=== PATIENT | female | born 1965 | race Caucasian/White ===

== ENCOUNTER 2017-03-02 17:03 | Emergency (ER) | payer OTHER, MEDICARE ==
[~2017-03-02] VITALS: Ht 160 cm; Wt 167.8 kg
[~2017-03-02 17:03] MED LIST: CRESTOR5 M1 PO; CYMBALTA60 M1 PO; DOXEPIN HCL25 MG PO; METFORMIN HCL500 M4 PO; NAPROXEN500 M2 PO; NEURONTIN300 M1 PO; VENTOLIN HFA18 GM INH; VITAMIN D250000 UNIT PO
--- NOTE | 2017-03-02 17:27 | ED DYSPNEA/ASTHMA COMPLAINT ---
History of Present Illness General Chief Complaint: General Adult Stated Complaint: DIFF BREATHING, ?LUPUS FLARE UP Source: patient Exam Limitations: no limitations Vital Signs & Intake/Output Vital Signs & Intake/Output Vital Signs Date Time Temp Pulse Resp B/P Pulse O2 O2 Flow FiO2 Ox Delivery Rate 03/02 1936 98.0 105 20 133/88 95 Room Air 03/02 1825 Room Air 03/02 1825 110 20 136/88 95 Room Air 03/02 1706 97.3 114 24 165/93 95 Room Air ED Intake and Output 03/03 0000 03/02 1200 Intake Total Output Total Balance Patient 370 lb Weight Allergies Coded Allergies: No Known Allergies (07/16/16) Reconcile Medications Albuterol Sulfate (Ventolin Hfa) 18 GM HFA.AER.AD 2 PUF INH Q4H ASTHMA ( Reported) Budesonide/Formoterol Fumarate (Symbicort 160-4.5 Mcg Inhaler) 160 MCG-4.5 MCG/ ACTUATION HFA.AER.AD 2 PUF INH BID ASTHMA (Reported) Doxepin HCl 25 MG CAPSULE 1 CAP PO QHS SLEEP (Reported) Duloxetine HCl (Cymbalta) 60 MG CAPSULE.DR 1 CAP PO BID MENTAL HEALTH ( Reported) Ergocalciferol (Vitamin D2) (Vitamin D2) 50,000 UNIT CAPSULE 1 CAP PO Q30D SUPPLEMENT (Reported) Furosemide (Lasix) 20 MG TABLET 1 TAB PO DAILY ANASARCA Metformin HCl (Metformin HCl ER) 500 MG TAB.ER.24H 1 TAB PO DAILY DIABETES ( Reported) Methylprednisolone. (Medrol) 4 MG TAB.DS.PK 1 DP PO AD INFLAMMATION 6 on day 1 then reduce by one tablet daily until gone Rosuvastatin Calcium (Crestor) 5 MG TABLET 1 TAB PO DAILY CHOLESTEROL ( Reported) Tiotropium [place] (Spiriva) 18 MCG CAP.W.DEV 1 CAP INH DAILY ASTHMA ( Reported) Triage Note: BIBA FOR APPARANT FLARE UP OF LUPUS. PT STATES SHE HAS SWELLING IN HANDS, FACE, ABDOMEN AND LEGS. FEELS LIKE SHE HAS A CHOKING SENSATION IN THROAT AND HEADACHE. PT JUST FINISHED UP COURSE OF PREDNISONE FOR "INFLAMMATION" SHOWING UP IN BLOOD WORK. ALERT, OREINTED. SOB WITH MINIMAL EXERTION. Triage Nurses Notes Reviewed? yes Onset: Abrupt Duration: day(s): (3) Timing: recent history Severity: mild, moderate Activities at Onset: none Associated Symptoms: GENERALIZED SWELLING HPI: 51 year old female with history of LUPUS presents with increased swelling in her whole body since gabriel night. She feels that she has a hard time breathing and that she can't swallow well. Just s/p lumpectomy and radiation that ended 6 months ago (dr dawkins). She reports breathing issues since then. Past History Travel History Traveled to [place] past 21 day No Medical History Any Pertinent Medical History? 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 No Review of Systems Review of Systems Constitutional: Denies: chills, fever. EENTM: Reports: no symptoms. Respiratory: Reports: short of breath. Denies: cough, sputum production. Cardiovascular: Reports: peripheral edema. Denies: chest pain, syncope. GI: Denies: abdominal pain. Genitourinary: Denies: discharge, dysuria. Musculoskeletal: Reports: no symptoms. Skin: Reports: no symptoms. Neurological/Psychological: Reports: anxiety. Hematologic/Endocrine: Denies: bruising, bleeding, polyuria, polydipsia. Immunologic/Allergic: Denies: splenectomy. All Other Systems: Reviewed and Negative Physical Exam Physical Exam General Appearance: well developed/nourished, alert, anxious, moderate distress, obese Head: atraumatic, normal appearance Eyes: Bilateral: normal appearance, PERRL, EOMI. Ears, Nose, Throat: normal pharynx, normal ENT inspection, hearing grossly normal Neck: normal inspection, supple, full range of motion, NO STRIDOR Respiratory: normal breath sounds, chest non-tender, no respiratory distress, lungs clear, decreased breath sounds Cardiovascular: regular rate/rhythm Peripheral Pulses: 2+ radial (R), 2+ radial (L) Gastrointestinal: soft, non-tender, OBESE Extremities: 2+ BILATERALLY Neurologic/Psych: no motor/sensory deficits, awake, alert, oriented x 3 Skin: intact, normal color, warm/dry Core Measures ACS in differential dx? No Severe Sepsis Present: No Septic Shock Present: No Progress Differential Diagnosis: CHF, ANASARCA, DEPENDENT EDEMA, LUPUS Plan of Care: Orders Procedure Date/time Status TROPONIN LEVEL 03/02 1745 Complete PARTIAL THROMBOPLASTIN TIME 03/02 1745 Complete PROTHROMBIN TIME 03/02 1745 Complete COMPREHENSIVE METABOLIC PANEL 03/02 1745 Complete CBC WITHOUT DIFFERENTIAL 03/02 1745 Complete B-TYPE NATRIURETIC PEP (BNP) 03/02 1745 Complete EKG 03/02 1706 Active Laboratory Tests 03/02/171739: Anion Gap 16, Estimated GFR > 60, BUN/Creatinine Ratio 21.4, Glucose 136 H, Calcium 9.9, Total Bilirubin 0.6, AST 28, ALT 43, Alkaline Phosphatase 100, Troponin I < 0.01, Cmm-P-Dulwplhvlgk Pept 22.0, Total Protein 7.6, Albumin 4.1, Globulin 3.5, Albumin/Globulin Ratio 1.2, PT 12.3, INR 1.17, APTT 30, CBC w Diff NO MAN DIFF REQ, RBC 4.91, MCV 82.7, MCH 27.5, RDW 14.7 H, MPV 8.8, Gran % 83.1 H, Lymphocytes % 12.1 L, Monocytes % 3.7, Eosinophils % 0.7, Basophils % 0.4, Absolute Granulocytes 8.1 H, Absolute Lymphocytes 1.2, Absolute Monocytes 0.4, Absolute Eosinophils 0.1, Absolute Basophils 0, PUBS MCHC 33.3 Diagnostic Imaging: Viewed by Me: Radiology Read. Discussed w/RAD: Radiology Read. CXR Impression: PATIENT: RAJESH MOON PRESENT AGE : 51 PATIENT ACCOUNT NO: [id number] : 67 LOCATION: [facility] ORDERING PHYSICIAN: OWEN EVANS MD SERVICE DATE: 03/02/17 EXAM TYPE: RAD - XRY -PORTABLE CHEST XRAY EXAMINATION: CHEST 1 VIEW CLINICAL INFORMATION: Dyspnea. Anasarca. COMPARISON: None. TECHNIQUE: An AP view of the chest is provided. FINDINGS: The cardiac silhouette is not enlarged. The mediastinal and hilar contours are unremarkable. There are neither pleural effusions nor pneumothoraces. There are no consolidations. The osseous structures are unremarkable. IMPRESSION: No evidence for acute disease. 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 <Electronically signed in Other Vendor System> SIGNED BY: ADRIA COLÓN MD 03/02/171804 Initial ED EKG: NSR Departure Departure Time of Disposition: 1915 Disposition: HOME OR SELF CARE Condition: Stable Clinical Impression Primary Impression: Anasarca Referrals: TALI HAND,SHANNAN Valle (PCP/Family) Additional Instructions: Take the Lasix and Medrol Dosepak as directed. Please follow-up with your private with Dr. Potter in the office. If your symptoms worsen please return to the emergency department. Departure Forms: Customer Survey General Discharge Information Prescriptions: Current Visit Scripts Methylprednisolone. (Medrol) 1 DP PO AD #1 DP 6 on day 1 then reduce by one tablet daily until gone Furosemide (Lasix) 1 TAB PO DAILY #10 TAB Critical Care Note Critical Care Note Critical Care Time: non-applicable
[2017-03-02] MEDS ORDERED: SYMBICORT 16010.2 GM INH (17:55)
[2017-03-02] MEDS ORDERED: SPIRIVA18 MCG INH (17:55)
--- NOTE | 2017-03-02 18:05 | RADIOLOGY REPORT ---
EXAMINATION: CHEST 1 VIEW CLINICAL INFORMATION: Dyspnea. Anasarca. COMPARISON: None. TECHNIQUE: An AP view of the chest is provided. FINDINGS: The cardiac silhouette is not enlarged. The mediastinal and hilar contours are unremarkable. There are neither pleural effusions nor pneumothoraces. There are no consolidations. The osseous structures are unremarkable. IMPRESSION: No evidence for acute disease.
[2017-03-02 18:08] LABS: ABSOLUTE BASOPHIL COUNT 0 /CUMM (0.0-0.2); ABSOLUTE EOSINOPHIL COUNT 0.1 /CUMM (0.0-0.7); ABSOLUTE GRANULOCYTE CT 8.1 /CUMM (1.4-6.5); ABSOLUTE LYMPH COUNT 1.2 /CUMM (1.2-3.4); ABSOLUTE MONOCYTE COUNT 0.4 /CUMM (0.10-0.60); BASOPHIL % 0.4 % (0.0-2.0); EOSINOPHIL % 0.7 % (0-5); HEMATOCRIT 40.6 % (37-47); MEAN CORPUSCULAR HGB 27.5 PG (27.0-31.0); MEAN CORPUSCULAR HGB CONC 33.3 G/DL (33.0-37.0); MEAN CORPUSCULAR VOLUME 82.7 FL (81.0-99.0); MEAN PLATELET VOLUME 8.8 FL (7.4-10.4); PLATELET COUNT 232 /CUMM (130-400); RBC DISTRIBUTION WIDTH 14.7 % (11.5-14.5); RED BLOOD CELL CT 4.91 /CUMM (4.20-5.40); WHITE BLOOD CELL COUNT 9.8 /CUMM (4.8-10.8)
[2017-03-02 18:20] LABS: GRANULOCYTE % 83.1 % (42.2-75.2)
[2017-03-02 18:26] LABS: PT 12.3 SEC (9.4-12.5); PTT 30 SEC (25-37)
[2017-03-02] MEDS ORDERED: LASIX20 M1 PO (19:17)
[2017-03-02] MEDS ORDERED: MEDROL4 M2 PO (19:17)
[2017-03-02 19:36] VITALS: BP 133/88
== END 2017-03-02 19:49 ==
LOC: ERH 17:03
PROVIDERS: Emergency Medicine
DX: R60.1 Generalized edema (principal)
CPT/HCPCS: 93005; 93010; 96374; 96375; J1940; J2930